=== PATIENT | female | born 1965 | race Caucasian/White ===

== ENCOUNTER → 2022-04-20 10:33 | Outpatient (BNVA) | payer OTHER, SELFPAY | PROVIDERS: Family Provider Nurse Practitioner Family; PCP Nurse Practitioner Family; Visit Provider Dermatology | DX: Z01.89 Encounter for other specified special examinations (principal) ==

== ENCOUNTER 2022-08-25 06:49 | Outpatient (CLI) | payer OTHER, SELFPAY ==
[2022-08-25 07:07] VITALS: BMI 34.0
--- NOTE | 2022-08-25 07:07 | ECG_ITS ---
[facility] Test Date: 2022-08-25 Pat Name: Janae Morales Department: Room: Gender: Female Grant Writer: Jeanette Delgado : 1965 Requested By: Andie Scott Order Number: [id number] Sagrario MD: Neisha Jackson M.D. Interpretive Statements NAME OF STUDY: LEXISCAN SESTAMIBI STRESS TEST INDICATION: Chest Pain, PROCEDURE: At the baseline, the EKG revealed normal sinus rhythm with a diffuse nonspecific T wave changes. The baseline heart was 65 bpm with a blood pressue of 199/104 mm of Hg Lexiscan was infused over a period of 20 seconds. A total of 0.4 milligrams of Lexiscan was infused. The stress phase was continued for a total of 5 minutes. Heart rate at the end of the stress phase was 84 bpm with a blood pressure 218/102 mm of Hg. The EKG at the peak infusion revealed no significant changes. Sestamibi was injected 20 seconds after the Lexiscan infusion. Heart rate at the end of the recovery phase was 76 bpm with a blood pressure of 196/103 mm of Hg. CONCLUSION: 1. No significant EKG changes with the LexiScan infusion 2. No LexiScan induced chest pain or cardiac arrhythmia 3. Normal blood pressure and heart rate response 4. Sestamibi/sestamibi perfusion scan pending; see separate report. Electronically Signed On 09-02-2022 8:41:57 CDT by Neisha Jackson M.D. [email or web address]
--- NOTE | 2022-08-25 07:08 | NMCV_ITS ---
NM carey perf SPECT r/s* [id number] Janae Morales Age: 56 Gender: F : 1965 Exam Date: 08/25/2022 07:08 Ordering Phys: Andie Scott-C [employer]PER[employer] Technologist: NELSY Bower Exam Location: [facility] Indications: CHEST PAIN STRESS TEST [facility] IMAGE PROTOCOL Rest/Stress 1 Lexiscan Day Radiopharmaceutical Dose (mCi) Administration Site Administered by Rest: Tc-99m 10.8 IV NELSY Barbosa Sestamibi Stress:Tc-99m 32.9 IV NELSY Barbosa Sestamibi Rest: 25-Aug-2022 60 Discovery 630 Stress: 25-Aug-2022 30 Discovery 630 0.4mg Lexiscan. Images obtained in supine and prone position. SPECT RESULTS Technical Quality: Excellent Raw Data Analysis: Normal Image Corrections: No attenuation or motion correction applied Summed Stress Score: 0 Summed Rest Score: 0 Summed Difference Score: 0 PERFUSION FINDINGS Fairly uniform myocardial tracer uptake. No significant perfusion abnormalities were noted. FUNCTIONAL RESULTS (calculated via Gated SPECT) Stress Image LV EF (%): 86 Stress EDV (mL):50 TID: 0.92 Stress ESV (mL):7 FUNCTIONAL FINDINGS: Segmental wall motion analysis revealing no gross wall motion normalities IMPRESSIONS 1. Unremarkable Myocardial perfusion imaging. 2. Normal LV ejection fraction of 86%. 3. LV wall motion analysis revealing no gross wall motion abnormalities. 4. Normal LV volume No similar previous studies are available for comparison Dr Neisha Jackson MD [facility] (Electronically Signed) Final Date: 25 August 2022 20:12 S
[2022-08-25] MEDS: regadenoson 0.4 Mg/5 ml Syringe IVP (08:41)
[2022-08-25] MEDS: ondansetron 2 mg/ML SDV 2 mL 4 MG IVP (08:53)
[2022-08-25 08:57] VITALS: BP 196/103; PULSE 75
== END 2022-08-25 06:50 | disposition home or self-care (01) ==
LOC: CDL 06:50
PROVIDERS: PCP Nurse Practitioner Family; Visit Provider Nurse Practitioner Family
DX: R07.9 Chest pain, unspecified (principal)
CPT/HCPCS: 36415; 78452; 93017; 96374; 96375; A9500; J2405; J2785

== ENCOUNTER → 2022-09-01 08:47 | Outpatient (BNVA) | payer OTHER, SELFPAY | PROVIDERS: PCP Nurse Practitioner Family; Visit Provider Nurse Practitioner Family | DX: E11.9 Type 2 diabetes mellitus without complications (principal); I10 Essential (primary) hypertension; F41.9 Anxiety disorder, unspecified | CPT/HCPCS: 80053; 80061; 83036 ==

== ENCOUNTER → 2022-09-08 08:44 | Outpatient (BNVA) | payer OTHER, SELFPAY | PROVIDERS: PCP Nurse Practitioner Family; Visit Provider Nurse Practitioner Family | DX: R74.8 Abnormal levels of other serum enzymes (principal); E11.9 Type 2 diabetes mellitus without complications | CPT/HCPCS: 80074 ==

== ENCOUNTER 2022-09-17 07:46 | Outpatient (CLI) | payer OTHER, SELFPAY ==
--- NOTE | 2022-09-17 08:30 | US_ITS ---
WS: [id number] RIGHT UPPER QUADRANT ULTRASOUND HISTORY: R74.8 - Abnormal levels of other serum enzymes COMPARISON: None available. Liver: 13.3 cm in length. Normal size liver. Surface of the liver is very slightly nodular suggesting early changes of cirrhosis. Coarse echotexture. No mass. No bile duct dilatation. Portal Vein: Normal hepatopetal flow with monophasic waveform. Gallbladder: Normally distended gallbladder with no stones or wall thickening. CBD: 0.3 cm Pancreas: Portions of the head and tail are obscured. The body is negative. Right kidney: 10.4 cm in length. Normal size and echogenicity. No hydronephrosis or mass. Aorta and IVC: Unremarkable abdominal aorta and IVC. No ascites. IMPRESSION: 1. Normal gallbladder. 2. Early changes of cirrhosis suspected within the liver. No mass or bile duct dilatation.
== END 2022-09-17 07:47 | disposition home or self-care (01) ==
PROVIDERS: PCP Nurse Practitioner Family; Visit Provider Nurse Practitioner Family
DX: R74.8 Abnormal levels of other serum enzymes (principal)
CPT/HCPCS: 76705; 80074

== ENCOUNTER → 2022-09-22 11:24 | Outpatient (BNVA) | payer OTHER, SELFPAY | PROVIDERS: PCP Nurse Practitioner Family; Visit Provider Nurse Practitioner Family | DX: R74.8 Abnormal levels of other serum enzymes (principal); E11.40 Type 2 diabetes mellitus with diabetic neuropathy, unspecified; K74.60 Unspecified cirrhosis of liver | CPT/HCPCS: 80053; 86705; 86706; 86709; 86803; 87340 ==

== ENCOUNTER → 2023-01-25 16:08 | Outpatient (BNVA) | payer OTHER, SELFPAY | PROVIDERS: PCP Nurse Practitioner Family; Visit Provider Nurse Practitioner Family | DX: J06.9 Acute upper respiratory infection, unspecified (principal) | CPT/HCPCS: 87400; 87426 ==

== ENCOUNTER → 2023-02-02 11:10 | Outpatient (BNVA) | payer OTHER, SELFPAY | PROVIDERS: PCP Nurse Practitioner Family; Visit Provider Nurse Practitioner Family | DX: M25.511 Pain in right shoulder (principal); I10 Essential (primary) hypertension; E78.2 Mixed hyperlipidemia; E11.9 Type 2 diabetes mellitus without complications | CPT/HCPCS: 80053; 80061; 83036 ==

== ENCOUNTER 2023-02-22 16:47 | Outpatient (CLI) | payer OTHER, SELFPAY ==
--- NOTE | 2023-02-22 16:56 | XR_ITS ---
WS: [id number] Exam: XR shoulder RT min 2V* [id number] Date/Time of Exam: 02/22/2023 4:56 PM Reason For Exam: M25.511 - Pain in right shoulder The projections of the shoulder reveal no fractures, anomalies, soft tissue swelling, or calcificatio ns. There is normal bony alignment. No irregularity of the bony architecture is noted. IMPRESSION: Negative RIGHT shoulder.
== END 2023-02-22 16:48 | disposition home or self-care (01) ==
LOC: RAD 16:50
PROVIDERS: PCP Nurse Practitioner Family; Visit Provider Nurse Practitioner Family
DX: M25.511 Pain in right shoulder (principal)
CPT/HCPCS: 73030

== ENCOUNTER 2023-04-12 16:49 | Outpatient (CLI) | payer OTHER, SELFPAY ==
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
== END 2023-04-12 16:50 | disposition home or self-care (01) ==
LOC: RAD 16:50
PROVIDERS: PCP Nurse Practitioner Family; Visit Provider Nurse Practitioner Family
DX: S80.252A Superficial foreign body, left knee, initial encounter (principal); X58.XXXA Exposure to other specified factors, initial encounter
CPT/HCPCS: 73562

== ENCOUNTER 2023-04-15 12:28 | Outpatient (CLI) | payer OTHER, SELFPAY ==
--- NOTE | 2023-04-15 13:00 | MR_ITS ---
WS: [id number] MRI RIGHT SHOULDER HISTORY: M25.511 - Pain in right shoulder COMPARISON: Radiograph 02/22/2023 TECHNIQUE: Multiplanar sequences of the shoulder joint are submitted. Moderate AC joint arthritis. Narrowing of the joint space with marrow edema in the distal clavicle an d adjacent acromion. Osteophyte encroachment upon the myotendinous portion of the supraspinatus. No j oint effusion or bursal distention. No significant subacromial impingement. No os acromion. Biceps te ndon in normal position of the bicipital groove. There is a lobulated cystic mass in the spinoglenoid notch. Lobulated cyst measures 1.6 x 0.5 cm. No atrophy of the rotator cuff muscles. There is no denervation edema in the infraspinatus muscle. Moderate tendinopathy in the distal supraspinatus tendon. Focal area of increased signal along the di stal articular surface of the supraspinatus but no full-thickness tear. This is more consistent with tendinopathy than a tear. Increased T2 signal in the superior labrum. Labral tear is suspected especi ally in concert with the final glenoid notch cyst. IMPRESSION: 1. 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 2. No infraspinatus muscle edema or denervation. 3. Abnormal signal involving the superior labrum. Superior labral tear is likely as this is typicall y noted with a paralabral cyst such as a spinoglenoid notch cyst described above. 4. Moderate AC joint arthritis. 5. Small osteophyte from the AC joint encroaching upon the supraspinatus myotendinous insertion site . 6. Moderate tendinopathy distal supraspinatus.
== END 2023-04-15 12:29 | disposition home or self-care (01) ==
LOC: RAD 12:29
PROVIDERS: PCP Nurse Practitioner Family; Visit Provider Nurse Practitioner Family
DX: S43.431A Superior glenoid labrum lesion of right shoulder, initial encounter (principal); M19.011 Primary osteoarthritis, right shoulder; M25.711 Osteophyte, right shoulder; M67.911 Unspecified disorder of synovium and tendon, right shoulder; X50.0XXA Overexertion from strenuous movement or load, initial encounter
CPT/HCPCS: 73221

== ENCOUNTER 2024-01-31 08:40 | Outpatient (CLI) | payer OTHER, SELFPAY ==
--- NOTE | 2024-01-31 08:42 | XR_ITS ---
WS: [id number] RIGHT SHOULDER: 3 VIEW(S) TECHNIQUE: Internal and external rotation with Y view. HISTORY: S49.91XD - Unspecified injury of right shoulder and upper... COMPARISON: None available. No fracture or dislocation or soft tissue abnormality. Glenohumeral and AC joints are unremarkable. XR/XR shoulder RT min 2V* [id number] IMPRESSION: Normal RIGHT shoulder.
== END 2024-01-31 08:41 | disposition home or self-care (01) ==
LOC: RAD 08:41
PROVIDERS: PCP Nurse Practitioner Family; Visit Provider Nurse Practitioner Family
DX: S49.91XD Unspecified injury of right shoulder and upper arm, subsequent encounter (principal); X58.XXXA Exposure to other specified factors, initial encounter
CPT/HCPCS: 73030

== ENCOUNTER → 2024-04-23 11:33 | Outpatient (BNVA) | payer OTHER, SELFPAY | PROVIDERS: PCP Nurse Practitioner Family; Visit Provider Registered Nurse | DX: J11.1 Influenza due to unidentified influenza virus with other respiratory manifestations (principal) | CPT/HCPCS: 87400; 87426 ==

== ENCOUNTER → 2024-11-29 08:09 | Outpatient (BNVA) | payer SELFPAY | PROVIDERS: PCP Nurse Practitioner Family; Visit Provider Nurse Practitioner Family | DX: I10 Essential (primary) hypertension (principal); E11.9 Type 2 diabetes mellitus without complications; R53.83 Other fatigue; E78.2 Mixed hyperlipidemia; R35.0 Frequency of micturition; N39.0 Urinary tract infection, site not specified | CPT/HCPCS: 80053; 80061; 81000; 82043; 83036; 84443; 85025; 87086 ==

== ENCOUNTER → 2024-12-19 09:09 | Outpatient (BNVA) | payer OTHER, SELFPAY | PROVIDERS: PCP Nurse Practitioner Family; Visit Provider Physician Assistant | DX: M65.332 Trigger finger, left middle finger (principal) | CPT/HCPCS: 73130 ==